=== PATIENT | female | born 2005 | race Caucasian/White ===

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

== ENCOUNTER → 2023-04-08 | Outpatient (CLI) | payer BC ==
[2023-04-08 17:12] LABS: BASO # 0.02 K/mm3 (0.02-0.10); EOS # 0.19 K/mm3 (0.04-0.40); EOS % 3.6 % (0.1-4.0); HEMATOCRIT 37.4 % (35.0-45.0); HEMOGLOBIN 11.6 g/dL (12.0-15.0); LYMPH# 2.59 K/mm3 (1.20-3.40); MEAN CELL VOLUME 75 fl (78-95); MEAN CORPUSCULAR HEMOGLOBIN 23 pg (26-32); MEAN CORPUSCULAR HGB CONC 31 g/dL (33-37); MEAN PLATELET VOLUME 9.2 fl (7.4-10.4); MONO # 0.53 K/mm3 (0.10-0.60); NEU # 1.88 K/mm3 (1.40-6.50); PLATELET COUNT 286 K/mm3 (130-400); RED BLOOD COUNT 4.97 M/mm3 (4.10-5.30); RED CELL DISTRIBUTION WIDTH 16.6 % (11.5-14.5); WHITE BLOOD COUNT 5.2 K/mm3 (4.8-10.8)
[2023-04-08 17:37] LABS: ALBUMIN 4.3 g/dL (3.5-5.0)
[2023-04-08 17:39] LABS: CALCIUM 8.9 mg/dL (8.3-10.5)
[2023-04-08 17:40] LABS: TOTAL PROTEIN 7.9 g/dL (6.4-8.3)
[2023-04-08 17:42] LABS: TOTAL BILIRUBIN 0.2 mg/dL (0.2-1.2)
== END ==
LOC: LAB 16:49
PROVIDERS: Family Medicine
DX: Z00.00 Encounter for general adult medical examination without abnormal findings (principal); N92.1 Excessive and frequent menstruation with irregular cycle; R55 Syncope and collapse